=== PATIENT | female | born 1975 | race Asian ===

== ENCOUNTER 2024-06-09 09:49 | Emergency (ER) | payer MEDICAID, OTHER ==
[~2024-06-09] VITALS: Ht 149.9 cm; Wt 63.6 kg
[2024-06-09 10:00] VITALS: BP 139/84; PULSE 80; RESP 18; TEMP 98.4; O2SAT 99
== END 2024-06-09 12:25 | disposition home or self-care (01) ==
LOC: EMS 09:49
DX: R20.2 Paresthesia of skin (principal); F17.210 Nicotine dependence, cigarettes, uncomplicated
CPT/HCPCS: 99282; Z7502